=== PATIENT | female | born 1945 | race Caucasian/White ===

== ENCOUNTER 2016-10-23 14:16 | Outpatient (CLI) | payer MEDICARE, OTHER ==
[2016-10-23] MEDS ORDERED: IOPAMIDOL-300 100 ML VIAL IVP ONE (15:27)
== END 2016-10-23 14:17 | disposition home or self-care (01) ==
DX: R07.9 Chest pain, unspecified (principal); R79.1 Abnormal coagulation profile
CPT/HCPCS: 36415; 71275; 82565; Q9967

== ENCOUNTER 2016-12-01 08:58 | Outpatient (CLI) | payer MEDICARE, OTHER | END 2016-12-01 08:59 | disposition home or self-care (01) | DX: M85.88 Other specified disorders of bone density and structure, other site (principal) ==

== ENCOUNTER 2017-02-19 10:08 | Outpatient (CLI) | payer MEDICARE, OTHER ==
[2017-02-19] MEDS ORDERED: ADENOSINE 60 MG/20 ML VIAL IVP ONE (13:00)
== END 2017-02-19 10:09 | disposition home or self-care (01) ==
DX: R07.9 Chest pain, unspecified (principal); I10 Essential (primary) hypertension; E78.5 Hyperlipidemia, unspecified
CPT/HCPCS: 78452; 93017; A9500; J0153

== ENCOUNTER 2017-03-18 09:44 | Outpatient (CLI) | payer MEDICARE, OTHER ==
--- NOTE | 2017-03-19 16:18 | Mammography Report ---
DIGITAL SCREENING MAMMOGRAM: 03/18/2017 CLINICAL INDICATION: A 71-year-old for screening. COMPARISON: 01/2016, 12/2014, 12/2013, 12/2012, 09/2011, 09/2010, 09/2009, 09/2008, 07/2007. TECHNIQUE: Routine CC and MLO projections were obtained of the breasts. FINDINGS: The breasts again demonstrate heterogeneously dense fibroglandular parenchyma bilaterally. Coarse and punctate, typically benign calcifications are present. No suspicious masses, clustered microcalcifications, or regions of architectural distortion are identified. IMPRESSION: BENIGN FINDINGS. RECOMMENDATION: Routine annual screening unless otherwise clinically indicated. BI-RADS category 2, benign findings. STANDARD QUALIFYING STATEMENTS 1. This examination was reviewed with the aid of Computer-Aided Detection (CAD). 2. A negative or benign imaging report should not delay biopsy if clinically suspicious findings are present. Consider surgical consultation if warranted. More than 5% of cancers are not identified by i maging. 3. Dense breasts may obscure an underlying neoplasm. JOB #: [id number] EXT JOB #:[id number]
== END 2017-03-18 09:45 | disposition home or self-care (01) ==
LOC: DI 09:44
PROVIDERS: ATTEND Physician Assistant Medical
DX: Z12.31 Encounter for screening mammogram for malignant neoplasm of breast (principal)
CPT/HCPCS: 77067

== ENCOUNTER 2017-04-07 18:21 | Outpatient (CLI) | payer MEDICARE, OTHER ==
--- NOTE | 2017-04-07 20:43 | Ultrasound Preliminary Report ---
Exam: US Duplex Ext Veins Right IMPRESSION: 1. No evidence for deep venous thrombosis. 2. Right anterior lateral knee fluid collection measuring 2.5 x 0.5 x 2.7 cm, appears minimally compl ex with some debris. This could represent a knee joint effusion versus a fluid collection in the deep soft tissue. [facility] The call report notification system was initiated by Dr. Angella Armendariz at 20:32 hrs on 04/07/17. The above findings were discussed with provider Best Cueto by Dr. Angella Armendariz at 20:42 hrs on 03/13 04/27. SITE ID: [id number]
--- NOTE | 2017-04-07 20:46 | Ultrasound Report ---
EXAM: RIGHT LOWER EXTREMITY VENOUS ULTRASOUND EXAM DATE: 04/07/2017 07:29 PM. CLINICAL HISTORY: CALF PAIN, RIGHT. COMPARISON: None. TECHNIQUE: Real-time sonographic vascular imaging was performed by the senior financial reporting accountant through the lower extremity utilizing both color-flow and Doppler spectral analysis. Multiple event sales representative static ranjith ges were saved for review. FINDINGS: Common Femoral Vein (CFV): Normal. CFV-GSV Junction: Normal. Profunda Femoral Vein (PFV): Normal. Femoral Vein (FV) Prox: Normal. Femoral Vein (FV) Mid: Normal. Femoral Vein (FV) Dist: Normal. Popliteal Vein: Normal. Posterior Tibial Veins: Normal. Peroneal Veins: Normal. Contralateral Side CFV: Normal. Other: Right anterior lateral knee fluid collection measuring 2.5 x 0.5 x 2.7 cm, appears minimally c omplex with some debris. This could represent a knee joint effusion versus a fluid collection in the deep soft tissue. IMPRESSION: 1. No evidence for deep venous thrombosis. 2. Right anterior lateral knee fluid collection measuring 2.5 x 0.5 x 2.7 cm, appears minimally compl ex with some debris. This could represent a knee joint effusion versus a fluid collection in the deep soft tissue. [facility] The call report notification system was initiated by Dr. Angella Armendariz at 20:32 hrs on 04/07/17. The above findings were discussed with provider Best Cueto by Dr. Angella Armendariz at 20:42 hrs on 03/13 04/27. Referring Provider Line: [phone] SITE ID: [id number]
== END 2017-04-07 18:22 | disposition home or self-care (01) ==
LOC: DI 18:21
PROVIDERS: ATTEND Physician Assistant Medical
DX: M25.461 Effusion, right knee (principal)

== ENCOUNTER 2017-05-15 10:45 | Outpatient (CLI) | payer MEDICARE, OTHER ==
--- NOTE | 2017-05-15 13:37 | XRAY Report ---
THREE VIEW RIGHT KNEE: 05/15/2017 CLINICAL INDICATION: Pain. FINDINGS: AP, lateral, and sunrise views of the right knee demonstrate moderate osteoarthritis. Ther e is no evidence of fracture. No effusion is present. IMPRESSION: MODERATE OSTEOARTHRITIS. JOB #: [id number] EXT JOB #:[id number]
== END 2017-05-15 10:46 | disposition home or self-care (01) ==
LOC: DI 10:45
PROVIDERS: ATTEND Physician Assistant Medical
DX: M25.561 Pain in right knee (principal); M17.11 Unilateral primary osteoarthritis, right knee

== ENCOUNTER 2017-06-24 14:37 | Outpatient (CLI) | payer MEDICARE, OTHER ==
--- NOTE | 2017-06-24 16:56 | MRI Report ---
EXAM: RIGHT KNEE MRI WITHOUT CONTRAST EXAM DATE: 06/24/2017 04:02 PM. CLINICAL HISTORY: RT KNEE PAIN. COMPARISON: RIGHT KNEE RADIOGRAPHY 05/15/2017. RIGHT KNEE MRI 03/01/2008. TECHNIQUE: Multiplanar, multisequence T1-weighted and fluid-sensitive sequences of the knee without c ontrast. Other: None. FINDINGS: Bones: No fractures or subluxations. Tricompartmental osteoarthritis with osteophytes, juxtaarticular marrow edema in the patella, medial femoral condyle and medial tibial plateau, worse than in 2008. N o bone lesions. Articular Cartilage: Grade 4 cartilaginous degeneration with large area of severe thinning and denuda tion in the medial femoral condyle and medial tibial plateau with joint space narrowing, worse than i n 2008. Grade 3 cartilaginous degeneration with thinning and irregular surface in the patella, latera l tibial plateau, also worse than in 2008. Medial Meniscus: The medial meniscus is small in size with diffuse degenerative signal and mild surfa ce fraying, without discrete tear demonstrated. Lateral Meniscus: The lateral meniscus is intact. Cruciate Ligaments: Diffusely increased signal, mild thickening, mild laxity are seen in the anterior cruciate ligament consistent with intrasubstance partial-thickness tear or diffuse intrasubstance de generation, not present in 2008. The posterior cruciate ligament is intact. Collateral Ligaments: The medial collateral and lateral collateral ligamentous structures are intact. Tendons: The quadriceps, patellar, semimembranosus, and popliteus tendons are unremarkable. Musculature: Small focal full-thickness tears in the origin of the plantaris with capsular outpouchin g. No edema or fatty atrophy. Other: Moderate effusion with mild synovial fraying. No popliteal cyst. No loose bodies. The medial and lateral retinacula, patellofemoral ligaments and iliotibial band are intact. No bursitis. The sub cutaneous tissues and fat pads are unremarkable. IMPRESSION: 1. Diffusely increased signal, mild thickening, mild laxity are seen in the anterior cruciate ligamen t consistent with intrasubstance partial-thickness tear or diffuse intrasubstance degeneration, not p resent in 2008. 2. Tricompartmental osteoarthritis with osteophytes, juxtaarticular marrow edema in the patella, medi al femoral condyle and medial tibial plateau, worse than in 2008. No fracture. 3. Grade 4 cartilaginous degeneration with large area of severe thinning and denudation in the medial femoral condyle and medial tibial plateau with joint space narrowing, worse than in 2008. Grade 3 ca rtilaginous degeneration with thinning and irregular surface in the patella, lateral tibial plateau, also worse than in 2008. 4. Moderate effusion with mild synovial fraying suggesting mild synovitis. 5. Small focal full-thickness tears in the origin of the plantaris with capsular outpouching. 6. The medial meniscus is small in size with diffuse degenerative signal and mild surface fraying, wi thout discrete tear demonstrated. 7. The lateral meniscus and collateral ligaments are intact. [facility] MUSCULOSKELETAL RADIOLOGY SECTION Referring Provider Line: [phone] SITE ID: [id number]
== END 2017-06-24 14:38 | disposition home or self-care (01) ==
LOC: DI 14:37
PROVIDERS: ATTEND Orthopaedic Surgery
DX: M17.11 Unilateral primary osteoarthritis, right knee (principal); M25.561 Pain in right knee; M25.761 Osteophyte, right knee; M25.461 Effusion, right knee

== ENCOUNTER 2017-12-01 10:01 | Outpatient (CLI) | payer MEDICARE, OTHER ==
[2017-12-01 17:41] LABS: BASOPHILS % (AUTO) 0.8 %; EOSINOPHILS # (AUTO) 0.2 10^3/uL (0.0-0.7); EOSINOPHILS % (AUTO) 3.9 %; HGB - HEMOGLOBIN 13.8 g/dL (12.0-16.0); LYMPHOCYTES % (AUTO) 20.9 %; MEAN CORPUSCULAR HEMOGLOBIN 30.3 pg (27.0-31.0); MEAN CORPUSCULAR HGB CONC 33.2 g/dL (32.0-36.0); MEAN CORPUSCULAR VOLUME 91.2 fL (81.0-99.0); MONOCYTES # (AUTO) 0.4 10^3/uL (0.0-1.0); MONOCYTES % (AUTO) 8.7 %; NEUTROPHILS # (AUTO) 3.3 10^3/uL (1.5-6.6); NEUTROPHILS % (AUTO) 65.7 %; PLT - PLATELET COUNT 234 10^3/uL (130-450); RED BLOOD COUNT 4.57 10^6/uL (4.20-5.40); RED CELL DISTRIBUTION WIDTH 13.2 % (12.0-15.0)
[2017-12-01 17:58] LABS: HEMOGLOBIN A1C 0.54 g/dL; HEMOGLOBIN A1C % 5.4 % (4.6-6.2)
[2017-12-01 18:20] LABS: ALBUMIN 4.3 g/dL (3.2-5.5); ALBUMIN/GLOBULIN RATIO 1.7 (1.0-2.2); ALKALINE PHOSPHATASE 56 IU/L (42-121); ALT ALANINE AMINOTRANSFERASE 23 IU/L (10-60); AST ASPARTATE AMINOTRANSFERASE 20 IU/L (10-42); BILIRUBIN,TOTAL 1.1 mg/dL (0.2-1.0); BUN - BLOOD UREA NITROGEN 15 mg/dL (6-20); CALCIUM 9.2 mg/dL (8.5-10.3); CARBON DIOXIDE - CO2 27 mmol/L (21-32); CHLORIDE 99 mmol/L (101-111); CHOL/HDL RATIO 2.2 (<4.4); CHOLESTEROL 149 mg/dL; CREATININE 0.7 mg/dL (0.4-1.0); GFR - MDRD 82 (>89); GLUCOSE 102 mg/dL (70-100); HDL CHOLESTEROL 67 mg/dL; LDL CHOLESTEROL,CALCULATED 55 mg/dL; LDL/HDL RATIO 0.8 (<4.4); SODIUM 136 mmol/L (135-145); TOTAL PROTEIN 6.9 g/dL (6.7-8.2); VLDL CHOLESTEROL 27 mg/dL
== END 2017-12-01 10:02 | disposition home or self-care (01) ==
LOC: LAB.F 10:01
PROVIDERS: ATTEND Physician Assistant Medical
DX: E78.5 Hyperlipidemia, unspecified (principal); R73.01 Impaired fasting glucose; J45.909 Unspecified asthma, uncomplicated
CPT/HCPCS: 36415; 80053; 80061; 83036; 83721; 85025

== ENCOUNTER 2017-12-14 12:34 | Outpatient (CLI) | payer MEDICARE, OTHER ==
[2017-12-14 13:19] LABS: BASOPHILS # (AUTO) 0.1 10^3/uL (0.0-0.1); BASOPHILS % (AUTO) 0.9 %; EOSINOPHILS # (AUTO) 0.2 10^3/uL (0.0-0.7); EOSINOPHILS % (AUTO) 2.7 %; HGB - HEMOGLOBIN 13.8 g/dL (12.0-16.0); LYMPHOCYTES # (AUTO) 1.3 10^3/uL (1.5-3.5); LYMPHOCYTES % (AUTO) 20.1 %; MEAN CORPUSCULAR HEMOGLOBIN 31.1 pg (27.0-31.0); MEAN CORPUSCULAR HGB CONC 34.4 g/dL (32.0-36.0); MEAN CORPUSCULAR VOLUME 90.5 fL (81.0-99.0); MEAN PLATELET VOLUME 6.5 fL (7.9-10.8); MONOCYTES # (AUTO) 0.6 10^3/uL (0.0-1.0); MONOCYTES % (AUTO) 10.2 %; NEUTROPHILS # (AUTO) 4.2 10^3/uL (1.5-6.6); NEUTROPHILS % (AUTO) 66.1 %; PLT - PLATELET COUNT 238 10^3/uL (130-450); RED BLOOD COUNT 4.42 10^6/uL (4.20-5.40); RED CELL DISTRIBUTION WIDTH 13.5 % (12.0-15.0); WHITE BLOOD COUNT 6.3 x10^3/uL (4.8-10.8)
== END 2017-12-14 12:35 | disposition home or self-care (01) ==
LOC: LAB 12:34
PROVIDERS: ATTEND Obstetrics & Gynecology
DX: D25.9 Leiomyoma of uterus, unspecified (principal); N81.4 Uterovaginal prolapse, unspecified
CPT/HCPCS: 36415; 85025; 86850; 86900; 86901; 93005

== ENCOUNTER 2018-08-20 10:04 | Outpatient (CLI) | payer MEDICARE, OTHER ==
--- NOTE | 2018-08-23 08:57 | Mammography Report ---
Reason: SCREENING MAMMO Procedure Date: 08/20/2018 Accession Number: [id number] / [id number] Procedure: RAMAN - Screening Mammo w/Levon CPT Code: FULL RESULT: EXAM: Screening Mammo w/Levon DATE: 08/20/2018 10:31 AM CLINICAL HISTORY: Routine screening. No reported personal history or family history of breast cancer TECHNIQUE: Bilateral CC and MLO views were obtained. COMPARISON: 03/18/2017 through 12/28/2013 FINDINGS: The breasts demonstrate heterogeneously dense fibroglandular parenchyma bilaterally. There are no suspicious masses, calcifications or areas of distortion. IMPRESSION: Negative examination RECOMMENDATION: Routine annual screening unless otherwise clinically indicated. BI-RADS CATEGORY 1: Negative STANDARD QUALIFYING STATEMENTS: 1. This examination was not reviewed with the aid of Computer-Aided Detection (CAD). 2. A negative or benign imaging report should not preclude biopsy if clinically suspicious findings are present. 3. Dense breasts may obscure an underlying neoplasm. 4. This examination was reviewed with the aid of 3D breast imaging (tomosynthesis).
== END 2018-08-20 10:05 | disposition home or self-care (01) ==
LOC: DI 10:04
DX: Z12.31 Encounter for screening mammogram for malignant neoplasm of breast (principal)
CPT/HCPCS: 77063; 77067

== ENCOUNTER 2019-01-07 10:27 | Outpatient (CLI) | payer MEDICARE, OTHER ==
[2019-01-07 17:20] LABS: BILIRUBIN,URINE NEGATIVE (NEGATIVE); GLUCOSE, URINE (UA) NEGATIVE (NEGATIVE); KETONES,URINE (UA) NEGATIVE (NEGATIVE); LEUKOCYTE ESTERASE, URINE SMALL (NEGATIVE); NITRITE,URINE NEGATIVE (NEGATIVE); OCCULT BLOOD,URINE MODERATE (NEGATIVE); PH,URINE 6.5 PH (5.0-7.5); PROTEIN,URINE NEGATIVE (NEGATIVE); UROBILINOGEN,URINE 0.2 (NORMAL) E.U./dL (NORMAL)
[2019-01-07 17:27] LABS: CLARITY,URINE HAZY (CLEAR); RBC,URINE 0-5 /HPF (0-5); SQUAMOUS EPITHELIAL CELL,UR RARE Squamous (<= Few); WBC CLUMPS,URINE PRESENT
[2019-01-07 17:28] LABS: BACTERIA,URINE Moderate /HPF (None Seen)
== END 2019-01-07 10:28 | disposition home or self-care (01) ==
LOC: LAB.F 10:27
PROVIDERS: ATTEND Physician Assistant Medical
DX: R31.9 Hematuria, unspecified (principal)
CPT/HCPCS: 81001; 87086

== ENCOUNTER 2019-01-20 08:00 | Outpatient (CLI) | payer MEDICARE, OTHER ==
[2019-01-20 20:48] LABS: BILIRUBIN,URINE NEGATIVE (NEGATIVE); GLUCOSE, URINE (UA) NEGATIVE (NEGATIVE); KETONES,URINE (UA) NEGATIVE (NEGATIVE); LEUKOCYTE ESTERASE, URINE MODERATE (NEGATIVE); NITRITE,URINE NEGATIVE (NEGATIVE); OCCULT BLOOD,URINE SMALL (NEGATIVE); PROTEIN,URINE NEGATIVE (NEGATIVE); UROBILINOGEN,URINE 0.2 (NORMAL) E.U./dL (NORMAL)
[2019-01-20 21:21] LABS: BACTERIA,URINE None Seen /HPF (None Seen); CLARITY,URINE CLEAR (CLEAR); RBC,URINE 0-5 /HPF (0-5); SQUAMOUS EPITHELIAL CELL,UR RARE Squamous (<= Few)
== END 2019-01-20 23:59 | disposition home or self-care (01) ==
LOC: LAB.R 08:00
PROVIDERS: ATTEND Physician Assistant Medical
DX: R31.9 Hematuria, unspecified (principal)
CPT/HCPCS: 81001; 87086

== ENCOUNTER 2019-01-20 15:09 | Outpatient (CLI) | payer MEDICARE, OTHER ==
[2019-01-20] MEDS ORDERED: IOVERSOL 320 100 ML VIAL IVP ONE ×2 (15:29→18:05)
[2019-01-20 15:43] LABS: CALCIUM 9.7 mg/dL (8.5-10.3); CREATININE 0.7 mg/dL (0.4-1.0)
--- NOTE | 2019-01-20 17:52 | CT Report ---
Reason: HEMATURIA Procedure Date: 01/20/2019 Accession Number: [id number] / [id number] Procedure: CT - ABDOMEN/PELVIS W/WO CPT Code: FULL RESULT: EXAM: CT ABDOMEN AND PELVIS WITHOUT AND WITH CONTRAST (CT IVP) EXAM DATE: 01/20/2019 05:30 PM. CLINICAL HISTORY: HEMATURIA. COMPARISONS: CHEST ANGIO 10/23/2016 3:13 PM. TECHNIQUE: Routine helical imaging was performed through the kidneys, ureters and bladder in the precontrast, postcontrast and delayed phase. IV Contrast: 100 cc Optiray 320 IV. Reconstructions: Coronal and sagittal. In accordance with CT protocol optimization, one or more of the following dose reduction techniques were utilized for this exam: automated exposure control, adjustment of mA and/or KV based on patient size, or use of iterative reconstructive technique. FINDINGS: Lung Bases: Unremarkable. Liver: Normal. No masses. Gallbladder/Bile Ducts: Unremarkable. Spleen: Normal. Pancreas: Normal. Adrenal Glands: Normal. Kidneys/Bladder: Right Kidney/Ureter: No renal or ureteral stones. No hydronephrosis or hydroureter. No masses. Left Kidney/Ureter: No renal or ureteral stones. No hydronephrosis or hydroureter. No masses. Bladder: No stones. No wall thickening or mass. Peritoneal Cavity/Bowel: There are a moderate number of diverticula throughout the colon. The bowel is normal in caliber. No pneumatosis or free air. No free fluid or abscess. Appendix appears normal. Pelvic Organs: Urinary bladder is partially fluid-filled. No filling defect within the bladder. The uterus is absent. Ovaries not visualized. Vasculature: No aneurysms or other significant abnormality. Bones: There is multilevel degenerative disk disease with intradiskal gas. Other: None. IMPRESSION: 1. No CT abnormality of kidneys, ureters, or bladder. No stones or masses. 2. Colonic diverticulosis without diverticulitis. [facility]
== END 2019-01-20 15:10 | disposition home or self-care (01) ==
LOC: DI 15:09
PROVIDERS: ATTEND Family Medicine
DX: R31.9 Hematuria, unspecified (principal); I10 Essential (primary) hypertension; K57.30 Diverticulosis of large intestine without perforation or abscess without bleeding
CPT/HCPCS: 36415; 74178; 80048; 81001; 87086; Q9967

== ENCOUNTER 2019-08-16 14:40 | Outpatient (CLI) | payer MEDICARE, OTHER | END 2019-08-16 23:59 | disposition home or self-care (01) | LOC: LAB.R 14:40 | PROVIDERS: ATTEND Physician Assistant Medical | DX: R31.9 Hematuria, unspecified (principal) | CPT/HCPCS: 81002; 87086 ==

== ENCOUNTER 2019-08-23 03:00 | Outpatient (CLI) | payer MEDICARE, OTHER | END 2019-08-23 23:59 | disposition home or self-care (01) | LOC: LAB.R 03:00 | PROVIDERS: ATTEND Physician Assistant Medical | DX: R31.9 Hematuria, unspecified (principal) | CPT/HCPCS: 81002; 87086 ==

== ENCOUNTER 2019-09-22 10:43 | Outpatient (CLI) | payer MEDICARE, OTHER ==
--- NOTE | 2019-09-23 09:46 | Mammography Report ---
Reason: SCREENING MAMMO Procedure Date: 09/22/2019 Accession Number: [id number] / [id number] Procedure: RAMAN - Screening Mammo w/Levon CPT Code: Final Report FULL RESULT: EXAM: Screening Mammo w/Levon DATE: 09/22/2019 11:29 AM CLINICAL HISTORY: Screening encounter. History of early menses. TECHNIQUE: (B) - Bilateral CC and MLO views were obtained. Left laterally exaggerated CC view is obtained. COMPARISON: 08/20/2018 through 09/27/2009. PARENCHYMAL PATTERN: (D) - The breast(s) demonstrate(s) heterogeneously dense fibroglandular parenchyma. FINDINGS: There are coarse typically benign calcifications and typically benign vascular calcifications. There are no suspicious masses, calcifications, or areas of distortion. IMPRESSION: Benign findings. BI-RADS category 2. RECOMMENDATION: (ANNUAL) - Recommend routine annual screening mammography. BI-RADS CATEGORY: (2) - Benign Findings. STANDARD QUALIFYING STATEMENTS: 1. This examination was not reviewed with the aid of Computer-Aided Detection (CAD). 2. A negative or benign imaging report should not preclude biopsy if clinically suspicious findings are present. 3. Dense breasts may obscure an underlying neoplasm. 4. This examination was reviewed with the aid of 3D breast imaging (tomosynthesis).
== END 2019-09-22 10:44 | disposition home or self-care (01) ==
LOC: DI 10:43
DX: Z12.31 Encounter for screening mammogram for malignant neoplasm of breast (principal)
CPT/HCPCS: 77063; 77067

== ENCOUNTER 2020-10-22 10:45 | Outpatient (CLI) | payer MEDICARE ==
--- NOTE | 2020-10-22 11:10 | DEXA Report ---
PROCEDURE: Dexa Spine and/or Hip INDICATIONS: POST MENOPAUSAL TECHNIQUE: Dual energy x-ray absorptiometry (DXA) was performed on a [employer] System. Regions measur ed are the AP Spine, femoral neck, and if needed forearm. COMPARISON: 12/01/2016 similar study. FINDINGS: Lumbar Spine: Bone Mineral Density 1.499 g/cm/cm,T score 2.7, normal, representing a 8.5% statistically signific ant improvement in bone mineral density from 2017. Left Hip: Bone Mineral Density 0.933 g/cm/cm,T score -0.6, normal, representing a statistically significant re duction in bone mineral density when compared to 2017. Left Femoral Neck: Bone Mineral Density 0.795 g/cm/cm, T score -1.7, osteopenia (T score greater or equal to -1.0: NORMAL) (T score from -1.1 to -2.4: OSTEOPENIA) (T score less than or equal to -2.5 to: OSTEOPOROSIS) Impression: There has been a statistically significant improvement in bone mineral density at the lum bosacral spine, and normal bone mineral density is again seen at the left hip (but reduced from 2017) . There is mild osteopenia at the left femoral neck. Patients with diagnosis of osteoporosis or osteopenia should have regular bone mineral density assess ment. For those eligible for Medicare, routine testing is allowed once every 2 years. Testing frequ ency can be increased for patients who have rapidly progressing disease or for those who are receivin g medical therapy to restore bone mass. Reviewed by: Moo Larkin MD on 10/22/2020 11:09 AM PST Approved by: Moo Larkin MD on 10/22/2020 11:09 AM PST Station ID: [id number]
== END 2020-10-22 10:46 | disposition home or self-care (01) ==
LOC: DI 10:45
PROVIDERS: ATTEND Physician Assistant Medical
DX: M85.88 Other specified disorders of bone density and structure, other site (principal); Z78.0 Asymptomatic menopausal state

== ENCOUNTER 2021-01-16 09:49 | Outpatient (CLI) | payer MEDICARE ==
--- NOTE | 2021-01-17 12:53 | Mammography Report ---
BILATERAL DIGITAL SCREENING MAMMOGRAM 3D/2D: 01/16/2021 CLINICAL: Routine screening. Routine screening. Comparison is made to exams dated: 09/22/2019 mammogram, 08/20/2018 mammogram, 03/18/2017 mammogram, mammogram, and 12/26/2014 mammogram - [facility]. The tissue of both breast s is predominantly fatty. There are benign calcifications in both breasts. No significant masses, calcifications, or other findings are seen in either breast. There has been no significant interval change. IMPRESSION: BENIGN There is no mammographic evidence of malignancy. A 1 year screening mammogram is recommended. This exam was interpreted at Station ID: [id number]. NOTE: For mammograms, a report in lay terms will be sent to the patient. Approximately 15% of breast malignancies will not be visualized mammographically. In the management of a palpable breast mass, a negative mammogram must not discourage biopsy of a clinically suspicious lesion. Electronically Signed By: Waldo Perez acr/penrad:01/16/2021 11:47:47 ACR BI-RADS Category 2: Benign Finding(s) 3342F PARENCHYMAL PATTERN: (F) - The breast(s) demonstrate(s) diffuse fatty replacement. BI-RADS CATEGORY: (2) - 2 RECOMMENDATION: (ANNUAL) - Recommend routine annual screening mammography. [id number] 1 year screening LATERALITY: (B)
== END 2021-01-16 09:50 | disposition home or self-care (01) ==
LOC: DI.S 09:49
DX: Z12.31 Encounter for screening mammogram for malignant neoplasm of breast (principal)

== ENCOUNTER 2021-01-18 09:10 | Outpatient (CLI) | payer MEDICARE ==
[2021-01-18 14:58] LABS: BASOPHILS % (AUTO) 0.9 %; EOSINOPHILS # (AUTO) 0.2 10^3/uL (0.0-0.7); EOSINOPHILS % (AUTO) 4.3 %; HCT - HEMATOCRIT 41.2 % (37.0-47.0); HGB - HEMOGLOBIN 13.5 g/dL (12.0-16.0); LYMPHOCYTES # (AUTO) 0.9 10^3/uL (1.5-3.5); LYMPHOCYTES % (AUTO) 19.4 %; MEAN CORPUSCULAR HEMOGLOBIN 31.1 pg (27.0-31.0); MEAN CORPUSCULAR HGB CONC 32.8 g/dL (32.0-36.0); MEAN CORPUSCULAR VOLUME 94.9 fL (81.0-99.0); MEAN PLATELET VOLUME 8.8 fL (7.9-10.8); MONOCYTES # (AUTO) 0.5 10^3/uL (0.0-1.0); MONOCYTES % (AUTO) 10.4 %; NEUTROPHILS % (AUTO) 64.8 %; PLT - PLATELET COUNT 227 10^3/uL (130-450); RED BLOOD COUNT 4.34 10^6/uL (4.20-5.40); RED CELL DISTRIBUTION WIDTH 13.1 % (12.0-15.0); WHITE BLOOD COUNT 4.6 x10^3/uL (4.8-10.8)
[2021-01-18 15:17] LABS: ALBUMIN 4.2 g/dL (3.2-5.5); ALBUMIN/GLOBULIN RATIO 1.4 (1.0-2.2); ALKALINE PHOSPHATASE 66 IU/L (42-121); ALT ALANINE AMINOTRANSFERASE 31 IU/L (10-60); AST ASPARTATE AMINOTRANSFERASE 22 IU/L (10-42); BILIRUBIN,TOTAL 0.7 mg/dL (0.2-1.0); BUN - BLOOD UREA NITROGEN 17 mg/dL (6-20); CALCIUM 9.2 mg/dL (8.5-10.3); CARBON DIOXIDE - CO2 29 mmol/L (21-32); CHLORIDE 102 mmol/L (101-111); CHOL/HDL RATIO 2.3 (<4.4); CHOLESTEROL 162 mg/dL; CREATININE 0.6 mg/dL (0.4-1.0); GFR - MDRD 98 (>89); GLUCOSE 120 mg/dL (70-100); HDL CHOLESTEROL 71 mg/dL; LDL CHOLESTEROL,CALCULATED 76 mg/dL; LDL/HDL RATIO 1.1 (<4.4); SODIUM 138 mmol/L (135-145); TOTAL PROTEIN 7.1 g/dL (6.7-8.2); TRIGLYCERIDES 77 mg/dL; VLDL CHOLESTEROL 15 mg/dL
== END 2021-01-18 09:11 | disposition home or self-care (01) ==
LOC: LAB.S 09:10
PROVIDERS: ATTEND Physician Assistant Medical
DX: E78.5 Hyperlipidemia, unspecified (principal); I10 Essential (primary) hypertension
CPT/HCPCS: 36415; 80053; 80061; 83721; 85025

== ENCOUNTER 2021-07-30 07:31 | Day surgery (SDC) | payer MEDICARE ==
[2021-07-30] MEDS ORDERED: LACTATED RINGERS 1,000 ML IV ONE (07:59)
[2021-07-30] MEDS ORDERED: MIDAZOLAM 2 MG/2 ML VIAL ONE ×3 (09:00→09:20)
[2021-07-30] MEDS ORDERED: fentaNYL 250 MCG/5 ML VIAL ONE (09:01)
[2021-07-30] MEDS ORDERED: LACTATED RINGERS 450 ML IV ONE (09:40)
[2021-07-30 10:23] VITALS: BP 111/62
== END 2021-07-30 07:32 | disposition home or self-care (01) ==
LOC: SDS 07:31
PROVIDERS: ATTEND Surgery
PROC: 0DBL8ZZ Excision of Transverse Colon, Via Natural or Artificial Opening Endoscopic (ICD-10-PCS; 2021-07-30)
PROC: 0DBK8ZZ Excision of Ascending Colon, Via Natural or Artificial Opening Endoscopic (ICD-10-PCS; principal; 2021-07-30 08:30)
DX: Z12.11 Encounter for screening for malignant neoplasm of colon (principal); D12.2 Benign neoplasm of ascending colon; D12.3 Benign neoplasm of transverse colon; K57.30 Diverticulosis of large intestine without perforation or abscess without bleeding; K64.8 Other hemorrhoids; K64.4 Residual hemorrhoidal skin tags; Z80.0 Family history of malignant neoplasm of digestive organs; I10 Essential (primary) hypertension; J45.909 Unspecified asthma, uncomplicated; K21.9 Gastro-esophageal reflux disease without esophagitis; E78.5 Hyperlipidemia, unspecified; Z79.82 Long term (current) use of aspirin; Z79.899 Other long term (current) drug therapy
CPT/HCPCS: 45380; 45385; J3010; J7120

== ENCOUNTER 2021-08-20 09:35 | Outpatient (CLI) | payer MEDICARE ==
[2021-08-20 15:42] LABS: CALCIUM 9.6 mg/dL (8.5-10.3); CREATININE 0.7 mg/dL (0.4-1.0); POTASSIUM 3.9 mmol/L (3.5-5.0)
[2021-08-20 20:14] LABS: ESTIMATED AVERAGE GLUCOSE 108 mg/dL (70-100); HEMOGLOBIN A1c% 5.4 % (4.27-6.07)
== END 2021-08-20 09:36 | disposition home or self-care (01) ==
LOC: LAB.S 09:35
PROVIDERS: ATTEND Physician Assistant Medical
DX: R73.01 Impaired fasting glucose (principal)
CPT/HCPCS: 36415; 80048; 83036

== ENCOUNTER 2022-02-28 10:15 | Outpatient (CLI) | payer MEDICARE ==
[2022-02-28 14:53] LABS: BASOPHILS % (AUTO) 0.8 %; EOSINOPHILS # (AUTO) 0.2 10^3/uL (0.0-0.7); EOSINOPHILS % (AUTO) 4.2 %; HCT - HEMATOCRIT 41.5 % (37.0-47.0); HGB - HEMOGLOBIN 13.5 g/dL (12.0-16.0); LYMPHOCYTES % (AUTO) 19.1 %; MEAN CORPUSCULAR HEMOGLOBIN 31.2 pg (27.0-31.0); MEAN CORPUSCULAR HGB CONC 32.5 g/dL (32.0-36.0); MEAN CORPUSCULAR VOLUME 95.8 fL (81.0-99.0); MEAN PLATELET VOLUME 9.1 fL (7.9-10.8); MONOCYTES # (AUTO) 0.5 10^3/uL (0.0-1.0); MONOCYTES % (AUTO) 9.7 %; NEUTROPHILS # (AUTO) 3.5 10^3/uL (1.5-6.6); NEUTROPHILS % (AUTO) 65.8 %; PLT - PLATELET COUNT 267 10^3/uL (130-450); RED BLOOD COUNT 4.33 10^6/uL (4.20-5.40); WHITE BLOOD COUNT 5.2 x10^3/uL (4.8-10.8)
[2022-02-28 15:22] LABS: ALBUMIN 3.9 g/dL (3.2-5.5); ALBUMIN/GLOBULIN RATIO 1.3 (1.0-2.2); ALKALINE PHOSPHATASE 59 IU/L (42-121); ALT ALANINE AMINOTRANSFERASE 24 IU/L (10-60); AST ASPARTATE AMINOTRANSFERASE 18 IU/L (10-42); BILIRUBIN,TOTAL 0.8 mg/dL (0.2-1.0); BUN - BLOOD UREA NITROGEN 16 mg/dL (6-20); CALCIUM 9.3 mg/dL (8.5-10.3); CARBON DIOXIDE - CO2 30 mmol/L (21-32); CHLORIDE 103 mmol/L (101-111); CHOL/HDL RATIO 2.2 (<4.4); CHOLESTEROL 153 mg/dL; CREATININE 0.8 mg/dL (0.4-1.0); GFR - MDRD 70 (>89); GLUCOSE 110 mg/dL (70-100); HDL CHOLESTEROL 71 mg/dL; LDL CHOLESTEROL,CALCULATED 63 mg/dL; LDL/HDL RATIO 0.9 (<4.4); SODIUM 140 mmol/L (135-145); TOTAL PROTEIN 6.9 g/dL (6.7-8.2); TRIGLYCERIDES 95 mg/dL; VLDL CHOLESTEROL 19 mg/dL
== END 2022-02-28 10:16 | disposition home or self-care (01) ==
LOC: LAB.S 10:15
PROVIDERS: ATTEND Physician Assistant Medical
DX: J45.909 Unspecified asthma, uncomplicated (principal); R73.01 Impaired fasting glucose; N39.0 Urinary tract infection, site not specified; E78.5 Hyperlipidemia, unspecified
CPT/HCPCS: 36415; 80053; 80061; 83721; 85025; 87086

== ENCOUNTER 2022-03-07 13:30 | Outpatient (CLI) | payer MEDICARE ==
[2022-03-07 19:13] LABS: BILIRUBIN,URINE NEGATIVE (NEGATIVE); GLUCOSE, URINE (UA) NEGATIVE (NEGATIVE); KETONES,URINE (UA) NEGATIVE (NEGATIVE); LEUKOCYTE ESTERASE, URINE LARGE (NEGATIVE); NITRITE,URINE NEGATIVE (NEGATIVE); OCCULT BLOOD,URINE SMALL (NEGATIVE); PH,URINE 6.5 PH (5.0-7.5); PROTEIN,URINE NEGATIVE (NEGATIVE); UROBILINOGEN,URINE 0.2 (NORMAL) E.U./dL (NORMAL)
[2022-03-07 19:22] LABS: CLARITY,URINE HAZY (CLEAR)
[2022-03-07 19:23] LABS: BACTERIA,URINE Rare /HPF (None Seen); EPITHELIAL CELLS,UR FEW Transitional /HPF (<= Few); SQUAMOUS EPITHELIAL CELL,UR FEW Squamous (<= Few)
== END 2022-03-07 23:59 | disposition home or self-care (01) ==
LOC: LAB.R 13:30
PROVIDERS: ATTEND Physician Assistant Medical
DX: R31.9 Hematuria, unspecified (principal); N95.2 Postmenopausal atrophic vaginitis
CPT/HCPCS: 81001; 81002; 87086

== ENCOUNTER 2022-09-03 08:00 | Outpatient (CLI) | payer MEDICARE ==
[2022-09-03 12:58] LABS: BILIRUBIN,URINE NEGATIVE (NEGATIVE); GLUCOSE, URINE (UA) NEGATIVE (NEGATIVE); KETONES,URINE (UA) NEGATIVE (NEGATIVE); LEUKOCYTE ESTERASE, URINE LARGE (NEGATIVE); NITRITE,URINE NEGATIVE (NEGATIVE); OCCULT BLOOD,URINE TRACE-INTA (NEGATIVE); PROTEIN,URINE NEGATIVE (NEGATIVE); UROBILINOGEN,URINE 0.2 (NORMAL) E.U./dL (NORMAL)
[2022-09-03 13:16] LABS: BACTERIA,URINE Few /HPF (None Seen); CLARITY,URINE HAZY (CLEAR); RBC,URINE 0-5 /HPF (0-5); SQUAMOUS EPITHELIAL CELL,UR FEW Squamous (<= Few); WBC,URINE >25 /HPF (0-5)
== END 2022-09-03 23:59 | disposition home or self-care (01) ==
LOC: LAB.WCP 08:00
PROVIDERS: ATTEND Physician Assistant Medical
DX: R31.9 Hematuria, unspecified (principal)
CPT/HCPCS: 81001; 87086

== ENCOUNTER 2022-09-16 07:46 | Outpatient (CLI) | payer MEDICARE ==
--- NOTE | 2022-09-16 16:23 | Ultrasound Report ---
PROCEDURE: Retroperitoneal INDICATIONS: HEMATURIA TECHNIQUE: Real-time scanning was performed of the retroperitoneal organs, with image documentation. COMPARISON: None. FINDINGS: Kidneys: No shadowing calculus or hydronephrosis. Left parapelvic renal cyst. Simple left renal super ior pole exophytic simple cyst measuring 1.5 cm. Bladder: Small postvoid residual of 60 mL. Otherwise normal exam. No bladder wall thickening or bladd er mass. Miscellaneous: No free abdominal fluid. IMPRESSION: No inflammation for hematuria. No shadowing calculus or hydronephrosis or renal mass demonstrated. Normal appearance of the urinary bladder other than small postvoid residual. Reviewed by: Larry Johnson MD on 09/16/2022 3:21 PM [facility] Approved by: Larry Johnson MD on 09/16/2022 3:21 PM [facility] Station ID: [id number]
== END 2022-09-16 07:47 | disposition home or self-care (01) ==
LOC: DI 07:46
PROVIDERS: ATTEND Physician Assistant Medical
DX: R31.9 Hematuria, unspecified (principal)

== ENCOUNTER 2022-09-17 08:00 | Outpatient (CLI) | payer MEDICARE ==
--- NOTE | 2022-09-17 11:43 | XRAY Report ---
PROCEDURE: Chest 2 View X-Ray INDICATIONS: PRODUCTIVE COUGH TECHNIQUE: 2 views of the chest were acquired. COMPARISON: 08/25/2016 FINDINGS: Surgical changes and devices: None. Lungs and pleura: No pleural effusions or pneumothorax. Lungs are clear. Mediastinum: Mediastinal contours are normal. Heart size is normal. Bones and chest wall: No suspicious bony abnormalities. Soft tissues appear unremarkable. IMPRESSION: No evidence acute pulmonary process. Reviewed by: Cuong Gonzalez MD on 09/17/2022 11:42 AM PST Approved by: Cuong Gonzalez MD on 09/17/2022 11:42 AM PST Station ID: [id number]
== END 2022-09-17 08:01 | disposition home or self-care (01) ==
LOC: DI.S 08:00
PROVIDERS: ATTEND Physician Assistant
DX: R05.9 Cough, unspecified (principal)

== ENCOUNTER 2023-01-28 09:27 | Outpatient (CLI) | payer MEDICARE ==
[2023-01-28 15:02] LABS: ALBUMIN 3.9 g/dL (3.2-5.5); ALBUMIN/GLOBULIN RATIO 1.3 (1.0-2.2); ALKALINE PHOSPHATASE 64 IU/L (42-121); ALT ALANINE AMINOTRANSFERASE 25 IU/L (10-60); AST ASPARTATE AMINOTRANSFERASE 19 IU/L (10-42); BUN - BLOOD UREA NITROGEN 17 mg/dL (6-20); CALCIUM 9.1 mg/dL (8.5-10.3); CARBON DIOXIDE - CO2 31 mmol/L (21-32); CHLORIDE 102 mmol/L (101-111); CHOL/HDL RATIO 2.1 (<4.4); CHOLESTEROL 156 mg/dL; CREATININE 0.7 mg/dL (0.4-1.0); GFR - MDRD 81 (>89); GLUCOSE 110 mg/dL (70-100); HDL CHOLESTEROL 73 mg/dL; LDL CHOLESTEROL,CALCULATED 65 mg/dL; LDL/HDL RATIO 0.9 (<4.4); POTASSIUM 4.1 mmol/L (3.5-5.0); SODIUM 139 mmol/L (135-145); TOTAL PROTEIN 6.8 g/dL (6.7-8.2); TRIGLYCERIDES 88 mg/dL; VLDL CHOLESTEROL 18 mg/dL
[2023-01-28 20:50] LABS: ESTIMATED AVERAGE GLUCOSE 105 mg/dL (70-100); HEMOGLOBIN A1c% 5.3 % (4.27-6.07)
== END 2023-01-28 09:28 | disposition home or self-care (01) ==
LOC: LAB.S 09:27
PROVIDERS: ATTEND Physician Assistant Medical
DX: E78.5 Hyperlipidemia, unspecified (principal); R31.9 Hematuria, unspecified; R73.01 Impaired fasting glucose
CPT/HCPCS: 36415; 80053; 80061; 81001; 83036; 83721; 87086

== ENCOUNTER 2023-03-26 08:00 | Outpatient (CLI) | payer MEDICARE | END 2023-03-26 23:59 | disposition home or self-care (01) | LOC: LAB.WCP 08:00 | PROVIDERS: ATTEND Physician Assistant Medical | DX: R30.0 Dysuria (principal) | CPT/HCPCS: 87086 ==

== ENCOUNTER 2023-05-06 14:11 | Outpatient (CLI) | payer MEDICARE ==
--- NOTE | 2023-05-06 15:30 | DEXA Report ---
PROCEDURE: Dexa Spine and/or Hip INDICATIONS: POST MENOPAUSAL TECHNIQUE: Dual energy x-ray absorptiometry (DXA) was performed on a [employer] System. Regions measur ed are the AP Spine, femoral neck, and if needed forearm. COMPARISON: 10/22/2020, 12/01/2016 FINDINGS: Lumbar Spine: Bone Mineral Density 1.553 g/cm/cm,T score 3.1. Since the most recent prior study, there has been a statistically significant increase in bone mineral density by 3.6 percent. Left Femoral Neck: Bone Mineral Density 0.770 g/cm/cm, T score -1.9. Left Hip: Bone Mineral Density of 0.925 g/cm/cm,T score -0.7. There has been no statistically significant luis e in bone mineral density since the prior study. (T score greater or equal to -1.0: NORMAL) (T score from -1.1 to -2.4: OSTEOPENIA) (T score less than or equal to -2.5 to: OSTEOPOROSIS) Impression: By WHO criteria, this patient has low bone density (osteopenia). Interval statistical increase in bone minteral density of the lumbar spine. No statistical interval c hange in bone minteral density of the hip. Patients with diagnosis of osteoporosis or osteopenia should have regular bone mineral density assess ment. For those eligible for Medicare, routine testing is allowed once every 2 years. Testing frequ ency can be increased for patients who have rapidly progressing disease or for those who are receivin g medical therapy to restore bone mass. Reviewed by: Chace Louise on 05/06/2023 3:28 PM PDT Approved by: Chace Louise on 05/06/2023 3:28 PM PDT Station ID: [id number]
== END 2023-05-06 14:12 | disposition home or self-care (01) ==
LOC: DI 14:11
PROVIDERS: ATTEND Physician Assistant Medical
DX: Z78.0 Asymptomatic menopausal state (principal); M85.80 Other specified disorders of bone density and structure, unspecified site

== ENCOUNTER 2023-05-12 09:45 | Outpatient (CLI) | payer MEDICARE ==
--- NOTE | 2023-05-13 12:07 | Mammography Report ---
BILATERAL DIGITAL SCREENING MAMMOGRAM 3D/2D: 05/12/2023 CLINICAL: Routine screening. Comparison is made to exams dated: 01/16/2021 mammogram, 09/22/2019 mammogram, and 08/20/2018 mammogram - [facility]. Both breasts are extremely dense, which lowers the sensitivity of mammography (category d />75% gland ular tissue). There are benign calcifications in both breasts. No significant masses, calcifications, or other findings are seen in either breast. There has been no significant interval change. IMPRESSION: BENIGN There is no mammographic evidence of malignancy. A 1 year screening mammogram is recommended. Based on the Tyrer Cuzick model (a risk assessment model) the patients lifetime risk is 8.1% and her 10 year risk is 0.0%. According to the ACR, ACS, and NCCN guidelines, an annual breast MRI exam estephania g with mammogram is recommended if the patients lifetime risk is 20% or greater. This exam was interpreted at Station ID: [id number]. NOTE: For mammograms, a report in lay terms will be sent to the patient. Approximately 15% of breast malignancies will not be visualized mammographically. In the management of a palpable breast mass, a negative mammogram must not discourage biopsy of a clinically suspicious lesion. Electronically Signed By: Madi hernandez/cindy:05/12/2023 13:25:15 letter sent: No_Letter ACR BI-RADS Category 2: Benign Finding(s) 3342F PARENCHYMAL PATTERN: (VD) - The breast(s) demonstrate(s) extremely dense parenchyma, limiting the sen sitivity of mammography. BI-RADS CATEGORY: (2) - 2 Mammogram [id number] 1 year screening LATERALITY: (B)
== END 2023-05-12 09:46 | disposition home or self-care (01) ==
LOC: DI.S 09:45
DX: Z12.31 Encounter for screening mammogram for malignant neoplasm of breast (principal)

== ENCOUNTER 2023-07-20 10:31 | Outpatient (CLI) | payer MEDICARE | END 2023-07-20 10:32 | disposition home or self-care (01) | LOC: LAB.S 10:31 | PROVIDERS: ATTEND Physician Assistant Medical | DX: R30.0 Dysuria (principal) | CPT/HCPCS: 87086 ==

== ENCOUNTER 2023-08-21 06:23 | Day surgery (SDC) | payer MEDICARE ==
[2023-08-21] MEDS ORDERED: LACTATED RINGERS 1,000 ML IV ONE ×2 (06:26→08:45)
[2023-08-21] MEDS ORDERED: PROPOFOL 500 MG/50 ML 500 MG/50 ML VIAL ONE (07:00)
--- NOTE | 2023-08-21 07:11 | ANESTHESIA ---
Pre-Anesthesia VS, & Labs - Diagnosis screening - Procedure colonoscopy Vital Signs: Temp Pulse Resp BP Pulse Ox O2 Flow Rate 36.6 C 72 12 120/64 94 08/21/23 06:26 08/21/23 06:26 08/21/23 06:26 08/21/23 06:26 08/21/23 06:26 Height: 5 ft 1.5 in Weight (kg): 73.1 kg Body Mass Index: 29.9 BMI Classification: Overweight - NPO >8 hours - Is Patient ?: No - Lab Results Lab results reviewed: Yes Home Medications and Allergies Home Medications: Ambulatory Orders Albuterol 1 neb INH PRN PRN 08/20/23 Metoprolol Succinate 50 mg PO DAILY 09/29/17 Atorvastatin Calcium 40 mg PO QPM 12/16/17 Ciclesonide [Alvesco] 1 puffs IH DAILY 07/29/21 amLODIPine [Norvasc] 5 mg PO DAILY 07/29/21 Albuterol 1 neb INH PRN PRN 08/20/23 Allergies/Adverse Reactions: Allergies Allergy/AdvReac Type Severity Reaction Status Date / Time lisinopril Allergy Severe Edema Verified 12/16/17 12:56 Sulfa (Sulfonamide AdvReac Mild Ineffective Verified 04/05/13 08:46 Antibiotics) Anes History & Medical History - Anesthetic History Anesthesia Complications: reports: No previous complications Family history of Anesthesia Complications: Denies Family history of Malignant Hyperthermia: Denies - Medical History Cardiovascular: reports: Hypertension Pulmonary: reports: Asthma Gastrointestinal: reports: GERD (w/c), Colon polyps Urinary: Musculoskeletal: reports: Osteoarthritis Endocrine/Autoimmune: reports: None Skin: reports: None Smoking Status: Never smoker Psychosocial: reports: No issues indicated - Surgical History General: reports: Bowel surgery, Colonoscopy Eyes Ears Nose Throat (EENT): reports: Cataracts, Tonsil/Adenoidectomy Urologic: reports: Bladder surgery Gynecologic: reports: Hysterectomy Orthopedic: reports: Knee replacement Exam General: Alert, Oriented x3, Cooperative Dental: WNL Mouth Openin Fingerbreadth Neck Mobility: Normal Mallampati classification: III Thyromental Distance: 4-6 cm Respiratory: Lungs clear Cardiovascular: Regular rate Plan Anesthesia Type: Total IV Consent for Procedure(s) Verified and Reviewed: Yes Code Status: Attempt Resuscitation ASA classification: 2-Mild systemic disease Is this case an emergency?: No
--- NOTE | 2023-08-21 07:47 | HISTORY & PHYSICAL EXAMINATION ---
Chief Complaint - Chief Complaint Chief Complaint: here for colonoscopy History of Present Illness - History Obtained From Records Reviewed: yes History obtained from: pt Exam Limitations: none - History of Present Illness HPI Comment/Other: personal history colon polyps and family hx colon ca father and son in his 30's no gi problems. last scope 2 years ago. 4 polyps History - Past Medical History Cardiovascular: reports: Hypertension Respiratory: reports: Asthma Endocrine/Autoimmune: reports: None GI: reports: GERD (w/c), Colon polyps : HEENT: reports: None Psych: reports: None Musculoskeletal: reports: Osteoarthritis Derm: reports: None MRSA Hx?: No - Past Surgical History General: reports: Bowel surgery, Colonoscopy Ortho: reports: Knee replacement /[employer]BER: reports: Hysterectomy HEENT: reports: Cataracts, Tonsil/Adenoidectomy Meds/Allgy - Home Medications Home Medications: Ambulatory Orders Medication Instructions Recorded Confirmed Metoprolol Succinate 50 mg PO DAILY 09/29/17 08/20/23 Atorvastatin Calcium 40 mg PO QPM 12/16/17 08/20/23 Ciclesonide [Alvesco] 1 puffs IH DAILY 07/29/21 08/20/23 amLODIPine [Norvasc] 5 mg PO DAILY 07/29/21 08/20/23 Albuterol 1 neb INH PRN PRN 08/20/23 08/20/23 - Allergies Allergies/Adverse Reactions: Allergies Allergy/AdvReac Type Severity Reaction Status Date / Time lisinopril Allergy Severe Edema Verified 12/16/17 12:56 Sulfa (Sulfonamide AdvReac Mild Ineffective Verified 04/05/13 08:46 Antibiotics) Review of Systems - Other Findings Other Findings: 10 pt ros as above otherwise unremarkable Exam - Vital Signs Vital Signs: Vital Signs x48h Temp Pulse Resp BP Pulse Ox 08/21/23 06:26 36.6 C 72 12 120/64 94 - Physical Exam General Appearance: positive: No acute distress, Alert Eyes Bilateral: positive: PERRL, EOMI ENT: positive: No signs of dehydration Neck: positive: No JVD, Trachea midline Respiratory: positive: No respiratory distress Cardiovascular: positive: Regular rate & rhythm Abdomen: positive: Non-tender, No distention Neurologic/Psychiatric: positive: Oriented x3 Conclusion/Plan - Problem List (1) History of adenomatous polyp of colon Conclusion/Plan: plan colonoscopy. parq held and consent obtained - Lab Results Lab results reviewed: Yes
[2023-08-21] MEDS ORDERED: GLYCOPYRROLATE 1 MG/5 ML VIAL ONE (08:05)
[2023-08-21] MEDS ORDERED: PROPOFOL 200 MG/20 ML VIAL IVP ONE ×2 (08:20→08:40)
[2023-08-21] MEDS ORDERED: fentaNYL 100 MCG/2 ML VIAL ONE (08:21)
--- NOTE | 2023-08-21 09:01 | ANESTHESIA POST OP EVALUATION ---
Anesthesia Post Eval - Post Anesthesia Eval Vitals: Last Vital Signs Temp 36.0 C L 08/21/23 08:45 Pulse 90 08/21/23 08:45 Resp 17 08/21/23 08:45 BP 128/71 08/21/23 08:45 Pulse Ox 96 08/21/23 08:45 O2 Flow Rate CV Function Including HR & BP: Stable Pain Control: Satisfactory Nausea & Vomiting: Negative Mental Status: Baseline Respiratory Status: Airway Patent Hydration Status: Satisfactory Anesthesia Complications: None
[2023-08-21 09:24] VITALS: BP 132/66; O2SAT 100
== END 2023-08-21 06:24 | disposition home or self-care (01) ==
LOC: SDS 06:23
PROVIDERS: ATTEND Surgery
DX: Z12.11 Encounter for screening for malignant neoplasm of colon (principal); K57.30 Diverticulosis of large intestine without perforation or abscess without bleeding; K64.4 Residual hemorrhoidal skin tags; J45.909 Unspecified asthma, uncomplicated; I10 Essential (primary) hypertension; Z80.0 Family history of malignant neoplasm of digestive organs; Z86.010 Personal history of colon polyps
CPT/HCPCS: G0105; J7120

== ENCOUNTER 2023-09-21 09:05 | Outpatient (CLI) | payer MEDICARE ==
[2023-09-21 15:46] LABS: ALBUMIN 4.1 g/dL (3.2-5.5); ALBUMIN/GLOBULIN RATIO 1.6 (1.0-2.2); ALKALINE PHOSPHATASE 60 IU/L (42-121); ALT ALANINE AMINOTRANSFERASE 24 IU/L (10-60); AST ASPARTATE AMINOTRANSFERASE 18 IU/L (10-42); BILIRUBIN,TOTAL 0.7 mg/dL (0.2-1.0); BUN - BLOOD UREA NITROGEN 16 mg/dL (6-20); CALCIUM 9.7 mg/dL (8.5-10.3); CARBON DIOXIDE - CO2 33 mmol/L (21-32); CHLORIDE 104 mmol/L (101-111); CHOL/HDL RATIO 2.3 (<4.4); CHOLESTEROL 162 mg/dL; CREATININE 0.6 mg/dL (0.6-1.3); GFR - MDRD 97 (>89); GLUCOSE 108 mg/dL (74-104); HDL CHOLESTEROL 71 mg/dL; LDL CHOLESTEROL,CALCULATED 71 mg/dL; POTASSIUM 4.5 mmol/L (3.5-4.5); SODIUM 141 mmol/L (135-145); TOTAL PROTEIN 6.7 g/dL (6.4-8.9); TRIGLYCERIDES 99 mg/dL (48-352); VLDL CHOLESTEROL 20 mg/dL
[2023-09-21 16:51] LABS: ESTIMATED AVERAGE GLUCOSE 103 mg/dL (70-100); HEMOGLOBIN A1c% 5.2 % (4.27-6.07)
== END 2023-09-21 09:06 | disposition home or self-care (01) ==
LOC: LAB.S 09:05
PROVIDERS: ATTEND Physician Assistant Medical
DX: E78.5 Hyperlipidemia, unspecified (principal); R73.01 Impaired fasting glucose
CPT/HCPCS: 36415; 80053; 80061; 83036; 83721

== ENCOUNTER 2024-06-01 09:01 | Outpatient (CLI) | payer MEDICARE ==
[2024-06-01 14:16] LABS: ALBUMIN/GLOBULIN RATIO 1.5 (1.0-2.2); ALKALINE PHOSPHATASE 65 IU/L (42-121); ALT ALANINE AMINOTRANSFERASE 25 IU/L (10-60); AST ASPARTATE AMINOTRANSFERASE 18 IU/L (10-42); BILIRUBIN,TOTAL 0.8 mg/dL (0.2-1.0); BUN - BLOOD UREA NITROGEN 14 mg/dL (6-20); CALCIUM 9.5 mg/dL (8.5-10.3); CARBON DIOXIDE - CO2 31 mmol/L (21-32); CHLORIDE 104 mmol/L (101-111); CHOL/HDL RATIO 2.2 (<4.4); CHOLESTEROL 148 mg/dL; CREATININE 0.6 mg/dL (0.6-1.3); GFR - MDRD 97 (>89); GLUCOSE 112 mg/dL (74-104); HDL CHOLESTEROL 68 mg/dL; LDL CHOLESTEROL,CALCULATED 63 mg/dL; LDL/HDL RATIO 0.9 (<4.4); SODIUM 139 mmol/L (135-145); TOTAL PROTEIN 6.7 g/dL (6.4-8.9); TRIGLYCERIDES 87 mg/dL; VLDL CHOLESTEROL 17 mg/dL
== END 2024-06-01 09:02 | disposition home or self-care (01) ==
LOC: LAB.S 09:01
PROVIDERS: ATTEND Physician Assistant Medical
DX: E78.5 Hyperlipidemia, unspecified (principal)
CPT/HCPCS: 36415; 80053; 80061; 83721